=== PATIENT | female | born 1940 | race African-American/Black ===

== ENCOUNTER 2021-07-25 11:55 | Inpatient (IN) ==
[2021-07-25 14:08] LABS: Bilirubin,Urine Negative (Negative); Blood, Urine Moderate mg/dL (Negative); Glucose,Urine (UA) Negative (Negative); Ketones,Urine Negative (Negative); Nitrite,Urine Negative (Negative); Protein,Urine 100 MG/DL; RBC,Urine 11 /HPF (0-4); Squamous Epithelial Cell,Urine Occasional /HPF (0-10); Urine Appearance CLEAR (Clear); Urine Color Red (Yellow); Urine Specific Gravity 1.018 (1.001-1.035); Urine Urobilinogen < 2.0 EU/DL (0.2-1.0)
[2021-07-25] MEDS ORDERED: cefTRIAXone 1,000 MG in SODIUM CHLORIDE 0.9% 100 ML IV STA (14:29)
[2021-07-25] MEDS ORDERED: AZITHROMYCIN 250 MG TABLET PO STA (14:29)
[2021-07-25 14:31] LABS: Basophils % 0.7 % (0.0-0.8); Eosinophils # 0.1 10*3/uL (0.0-0.87); Eosinophils % 2.2 % (0.00-10.9); Hematocrit 27.2 VOL% (35.7-47.0); Hemoglobin 8.8 GM/DL (12.0-16.0); Immature Granulocytes % 2.2 %; Immature Granulocytes Absolute 0.09 #; Lymphocytes # 1.1 10*3/uL (1.4-4.0); Lymphocytes % 28.3 % (21.3-54.2); Mean Corpuscular HGB Conc 32.4 GM/DL (32-36); Mean Corpuscular Volume 100.7 FL (87-102); Monocytes % 17.4 % (1.7-12.7); NRBC # 0.04 10*3/uL; Neutrophils % 49.2 % (38.7-73.9); Red Cell Distribution Width 18.6 % (9.3-17.3)
[2021-07-25 14:33] LABS: Platelet Count 92 T/CUMM (130-400)
[2021-07-25 15:02] LABS: Alanine Aminotransferase 18 U/L (13-56); Albumin 2.9 G/DL (3.4-5.0); Alkaline Phosphatase 104 U/L (45-117); Aspartate Amino Transferase 47 U/L (0-37); Blood Urea Nitrogen 14 MG/DL (7-18); Calcium 8.3 MG/DL (8.5-10.1); Carbon Dioxide 21 MMOL/L (21-32); Estimated Glom Filtration Rate 97 ML/MIN; Glucose 71 MG/DL (74-106); Osmolality,Calculated 275.5 MOS/KG (273-304); Potassium 3.6 MMOL/L (3.5-5.1); Sodium 139 MMOL/L (136-145); Total Protein 5.3 G/DL (6.4-8.2)
[2021-07-25 15:05] LABS: Anisocytosis 2+; Atypical Lymphocytes Few; Band Neutrophils 7 % (0-10); Burr Cells 2+; Eosinophils 4 % (0-10); Lymphocytes 30 % (20-55); Macrocytosis 1+; Metamyelocytes 4 %; Myelocytes 1 %; Nucleated Red Blood Cells 1 (0-5); Platelet Estimate Decreased; Poikilocytosis 2+; Segmented Neutrophils 40 % (50-85); Total Cells Counted 100
[2021-07-25 15:06] LABS: Ovalocytes 1+
[2021-07-25] MEDS ORDERED: SODIUM CHLORIDE 0.9% 2,200 ML IV ONE (15:07)
[2021-07-25] MEDS: LEVOFLOXACIN INJ 500 MG/100 ML PREMIX IV SCH (16:20)
[2021-07-25] MEDS ORDERED: ONDANSETRON 4 MG/2 ML VIAL IV PRN (16:47)
[2021-07-25 17:50] LABS: Folate 7.93 NG/ML (5.38-24.0)
[2021-07-25 18:00] LABS: % Iron Saturation 27.4 % (18-50); Ferritin 3959.6 ng/mL (8-252)
[2021-07-25] MEDS: SODIUM CHLORIDE 0.9% 1,000 ML IV SCH (18:00)
[2021-07-25] MEDS: ACYCLOVIR 200 MG CAPSULE PO SCH (22:51)
[2021-07-25] MEDS ORDERED: MINERAL OIL ENEMA 133 ML BOTTLE RECTAL ONE (23:30)
[2021-07-26 05:21] LABS: Basophils % 0.9 % (0.0-0.8); Eosinophils # 0.1 10*3/uL (0.0-0.87); Eosinophils % 2.7 % (0.00-10.9); Hemoglobin 7.2 GM/DL (12.0-16.0); Immature Granulocytes % 1.5 %; Immature Granulocytes Absolute 0.05 #; Lymphocytes # 1.2 10*3/uL (1.4-4.0); Lymphocytes % 36.9 % (21.3-54.2); Mean Corpuscular HGB Conc 32.7 GM/DL (32-36); Mean Platelet Volume 11.5 FL (9.6-12.0); Monocytes % 12.2 % (1.7-12.7); NRBC # 0.04 10*3/uL; Neutrophils % 45.8 % (38.7-73.9); Platelet Count 77 T/CUMM (130-400); Red Cell Distribution Width 18.6 % (9.3-17.3); White Blood Count 3.3 T/CUMM (4-12)
[2021-07-26 05:33] LABS: Calcium 7.7 MG/DL (8.5-10.1); Osmolality,Calculated 279.3 MOS/KG (273-304); Potassium 3.4 MMOL/L (3.5-5.1)
[2021-07-26 05:43] LABS: Eosinophils 2 % (0-10); Hypochromasia 1+; Lymphocytes 25 % (20-55); Microcytosis 1+; Nucleated Red Blood Cells 1 (0-5); Ovalocytes Slight; Platelet Estimate Decreased; Segmented Neutrophils 60 % (50-85); Total Cells Counted 100
[2021-07-26 05:44] LABS: Albumin 2.4 G/DL (3.4-5.0); Calcium 7.6 MG/DL (8.5-10.1); Potassium 3.4 MMOL/L (3.5-5.1); Thyroid Stimulating Hormone 0.916 uIU/ml (0.358-3.74); Total Protein 4.5 G/DL (6.4-8.2)
[2021-07-26] MEDS: LEVOTHYROXINE 50 MCG TABLET PO SCH (06:08)
[2021-07-26] MEDS: SODIUM CHLORIDE 0.9% 1,000 ML IV SCH ×2 (06:24→20:41)
[2021-07-26] MEDS ORDERED: SODIUM CHLORIDE 0.9% 1,000 ML IV PRN (08:48)
[2021-07-26] MEDS ORDERED: MAGNESIUM SULF RIDER 2 GM/50 ML PREMIX IV ONE (08:49)
[2021-07-26] MEDS: CHOLECALCIFEROL 400 UNIT TABLET PO SCH (10:29)
[2021-07-26] MEDS: POTASSIUM CHLORIDE 10 MEQ TABLET PO SCH (10:31)
[2021-07-26] MEDS: allopurinoL 300 MG TABLET PO SCH (10:32)
[2021-07-26] MEDS: ACYCLOVIR 200 MG CAPSULE PO SCH ×2 (10:32→20:36)
[2021-07-26] MEDS: PANTOPRAZOLE 40 MG TABLET PO SCH (10:33)
[2021-07-26] MEDS ORDERED: MAGNESIUM HYDROXIDE SUSP 30 ML UDCUP PO PRN (11:40)
[2021-07-26] MEDS: DOCUSATE/SENNA 50-8.6 MG TABLET PO SCH ×2 (14:07→20:36)
[2021-07-26] MEDS: DIFLUPREDNATE 0.05% OPH EMUL 5 ML BOTTLE BOTH EYES SCH (14:14)
[2021-07-26] MEDS: LEVOFLOXACIN INJ 500 MG/100 ML PREMIX IV SCH (15:11)
[2021-07-27] MEDS: ACETAMINOPHEN 325 MG TABLET PO PRN ×2 (01:15→13:26)
[2021-07-27 02:23] LABS: Hemoglobin 7.9 GM/DL (12.0-16.0)
[2021-07-27 05:36] LABS: Basophils % 0.9 % (0.0-0.8); Eosinophils # 0.1 10*3/uL (0.0-0.87); Eosinophils % 1.8 % (0.00-10.9); Hematocrit 23.1 VOL% (35.7-47.0); Hemoglobin 7.7 GM/DL (12.0-16.0); Immature Granulocytes % 3.2 %; Immature Granulocytes Absolute 0.11 #; Lymphocytes # 0.8 10*3/uL (1.4-4.0); Lymphocytes % 22.2 % (21.3-54.2); Mean Corpuscular HGB Conc 33.3 GM/DL (32-36); Mean Corpuscular Volume 98.7 FL (87-102); Mean Platelet Volume 12.2 FL (9.6-12.0); NRBC # 0.06 10*3/uL; Neutrophils % 59.9 % (38.7-73.9); Platelet Count 70 T/CUMM (130-400); Red Blood Count 2.34 MC/CUMM (3.8-5.5); White Blood Count 3.4 T/CUMM (4-12)
[2021-07-27 05:47] LABS: Calcium 7.6 MG/DL (8.5-10.1); Osmolality,Calculated 281.3 MOS/KG (273-304); Potassium 3.7 MMOL/L (3.5-5.1)
[2021-07-27] MEDS: LEVOTHYROXINE 50 MCG TABLET PO SCH (06:15)
[2021-07-27 06:21] LABS: Anisocytosis 3+; Band Neutrophils 24 % (0-10); Eosinophils 1 % (0-10); Lymphocytes 19 % (20-55); Nucleated Red Blood Cells 3 (0-5); Platelet Estimate Decreased; Poikilocytosis 1+; Segmented Neutrophils 44 % (50-85); Total Cells Counted 100
[2021-07-27 06:22] LABS: Burr Cells 1+; Ovalocytes Few; Spherocytes Few; Tear Drop Cells Few
[2021-07-27] MEDS: ACYCLOVIR 200 MG CAPSULE PO SCH ×2 (08:56→21:03)
[2021-07-27] MEDS: allopurinoL 300 MG TABLET PO SCH (08:57)
[2021-07-27] MEDS: DOCUSATE/SENNA 50-8.6 MG TABLET PO SCH ×2 (08:57→21:46)
[2021-07-27] MEDS: PANTOPRAZOLE 40 MG TABLET PO SCH (08:58)
[2021-07-27] MEDS: CHOLECALCIFEROL 400 UNIT TABLET PO SCH (08:58)
[2021-07-27] MEDS: POTASSIUM CHLORIDE 10 MEQ TABLET PO SCH (08:58)
[2021-07-27 09:46] LABS: Hematocrit 23.3 VOL% (35.7-47.0); Hemoglobin 7.9 GM/DL (12.0-16.0)
[2021-07-27] MEDS: SODIUM CHLORIDE 0.9% 1,000 ML IV SCH (11:23)
[2021-07-27] MEDS: POLYETHYLENE GLYCOL POWDER 17 GM PACK PO SCH ×2 (11:26→21:46)
[2021-07-27] MEDS ORDERED: SODIUM PHOSPHATE ENEMA 133 ML BOTTLE RECTAL PRN (11:43)
[2021-07-27] MEDS ORDERED: BENZONATATE 100 MG CAPSULE PO PRN (12:06)
[2021-07-27] MEDS: FLUTICASONE 50 MCG NASAL SPRAY 16 GM BOTTLE BOTH NARES SCH ×2 (13:27→21:46)
[2021-07-27] MEDS: DIFLUPREDNATE 0.05% OPH EMUL 5 ML BOTTLE BOTH EYES SCH (13:27)
[2021-07-27 18:30] LABS: Hematocrit 26.6 VOL% (35.7-47.0); Hemoglobin 8.8 GM/DL (12.0-16.0)
[2021-07-28] MEDS: SODIUM CHLORIDE 0.9% 1,000 ML IV SCH ×3 (03:15→22:32)
[2021-07-28 06:19] LABS: Basophils # 0.1 10*3/uL (0.0-0.2); Basophils % 1.6 % (0.0-0.8); Eosinophils # 0.2 10*3/uL (0.0-0.87); Eosinophils % 4.8 % (0.00-10.9); Hematocrit 23.1 VOL% (35.7-47.0); Hemoglobin 7.6 GM/DL (12.0-16.0); Immature Granulocytes % 1.3 %; Immature Granulocytes Absolute 0.04 #; Lymphocytes # 1.3 10*3/uL (1.4-4.0); Lymphocytes % 40.6 % (21.3-54.2); Mean Corpuscular HGB Conc 32.9 GM/DL (32-36); Mean Corpuscular Volume 95.9 FL (87-102); Mean Platelet Volume 12.6 FL (9.6-12.0); Monocytes % 9.9 % (1.7-12.7); NRBC # 0.05 10*3/uL; Neutrophils % 41.8 % (38.7-73.9); Platelet Count 72 T/CUMM (130-400); Red Blood Count 2.41 MC/CUMM (3.8-5.5); Red Cell Distribution Width 21.8 % (9.3-17.3); White Blood Count 3.1 T/CUMM (4-12)
[2021-07-28] MEDS: LEVOTHYROXINE 50 MCG TABLET PO SCH (06:26)
[2021-07-28 06:45] LABS: Band Neutrophils 1 % (0-10); Calcium 7.6 MG/DL (8.5-10.1); Eosinophils 5 % (0-10); Lymphocytes 37 % (20-55); Potassium 3.5 MMOL/L (3.5-5.1); Segmented Neutrophils 50 % (50-85); Total Cells Counted 100
[2021-07-28 06:46] LABS: Burr Cells Slight; Hypochromasia 1+; Microcytosis 1+; Ovalocytes Slight; Platelet Estimate Decreased
[2021-07-28] MEDS: DOCUSATE/SENNA 50-8.6 MG TABLET PO SCH ×2 (09:34→22:33)
[2021-07-28] MEDS: POTASSIUM CHLORIDE 10 MEQ TABLET PO SCH (09:35)
[2021-07-28] MEDS: PANTOPRAZOLE 40 MG TABLET PO SCH (09:35)
[2021-07-28] MEDS: allopurinoL 300 MG TABLET PO SCH (09:35)
[2021-07-28] MEDS: ACYCLOVIR 200 MG CAPSULE PO SCH ×2 (09:36→21:01)
[2021-07-28] MEDS: FLUTICASONE 50 MCG NASAL SPRAY 16 GM BOTTLE BOTH NARES SCH ×2 (09:37→22:33)
[2021-07-28] MEDS: CHOLECALCIFEROL 400 UNIT TABLET PO SCH (09:37)
[2021-07-28] MEDS: POLYETHYLENE GLYCOL POWDER 17 GM PACK PO SCH (09:38)
[2021-07-28] MEDS ORDERED: diphenhydrAMINE CAP 25 MG CAPSULE PO PRN (11:28)
[2021-07-28] MEDS ORDERED: ACETAMINOPHEN 500 MG TABLET PO ONE (11:29)
[2021-07-28] MEDS ORDERED: ALUMINUM/MAGNES/SIMETH MAX STR 30 ML UDCUP PO PRN (11:30)
[2021-07-28] MEDS: DIFLUPREDNATE 0.05% OPH EMUL 5 ML BOTTLE BOTH EYES SCH (15:26)
[2021-07-28 20:11] LABS: Hematocrit 28.7 VOL% (35.7-47.0)
[2021-07-28 20:13] LABS: Hemoglobin 9.4 GM/DL (12.0-16.0)
[2021-07-29] MEDS: ACETAMINOPHEN 325 MG TABLET PO PRN (02:40)
[2021-07-29 04:31] LABS: Basophils % 1.3 % (0.0-0.8); Eosinophils # 0.1 10*3/uL (0.0-0.87); Eosinophils % 3.5 % (0.00-10.9); Hemoglobin 8.6 GM/DL (12.0-16.0); Immature Granulocytes % 1.3 %; Immature Granulocytes Absolute 0.04 #; Lymphocytes # 0.9 10*3/uL (1.4-4.0); Lymphocytes % 28.8 % (21.3-54.2); Mean Corpuscular HGB Conc 33.1 GM/DL (32-36); Mean Corpuscular Volume 94.2 FL (87-102); Mean Platelet Volume 11.9 FL (9.6-12.0); Monocytes % 10.5 % (1.7-12.7); NRBC # 0.07 10*3/uL; Neutrophils % 54.6 % (38.7-73.9); Red Blood Count 2.76 MC/CUMM (3.8-5.5); Red Cell Distribution Width 22.1 % (9.3-17.3); White Blood Count 3.1 T/CUMM (4-12)
[2021-07-29] MEDS: SODIUM CHLORIDE 0.9% 1,000 ML IV SCH ×2 (04:40→09:33)
[2021-07-29 04:52] LABS: Albumin 2.3 G/DL (3.4-5.0); Bilirubin,Total 2.8 MG/DL (0.20-1.00); Calcium 7.3 MG/DL (8.5-10.1); Osmolality,Calculated 283.1 MOS/KG (273-304); Potassium 3.7 MMOL/L (3.5-5.1); Total Protein 4.4 G/DL (6.4-8.2)
[2021-07-29 04:53] LABS: Platelet Count 80 T/CUMM (130-400)
[2021-07-29 05:05] LABS: Burr Cells Few; Elliptocytes Few; Hypochromasia 1+; Microcytosis 1+; Platelet Estimate Decreased
[2021-07-29] MEDS: LEVOTHYROXINE 50 MCG TABLET PO SCH (06:04)
[2021-07-29] MEDS ORDERED: DOCUSATE SODIUM 100 MG CAPSULE PO PRN (07:57)
[2021-07-29] MEDS: POTASSIUM CHLORIDE 10 MEQ TABLET PO SCH (09:28)
[2021-07-29] MEDS: CHOLECALCIFEROL 400 UNIT TABLET PO SCH (09:28)
[2021-07-29] MEDS: POLYETHYLENE GLYCOL POWDER 17 GM PACK PO SCH (09:28)
[2021-07-29] MEDS: FERROUS SULFATE 325 MG TABLET PO SCH ×2 (09:28→22:25)
[2021-07-29] MEDS: PANTOPRAZOLE 40 MG TABLET PO SCH (09:29)
[2021-07-29] MEDS: ACYCLOVIR 200 MG CAPSULE PO SCH ×2 (09:29→22:26)
[2021-07-29] MEDS: allopurinoL 300 MG TABLET PO SCH (09:29)
[2021-07-29] MEDS: DIFLUPREDNATE 0.05% OPH EMUL 5 ML BOTTLE BOTH EYES SCH (09:29)
[2021-07-29] MEDS: DOCUSATE/SENNA 50-8.6 MG TABLET PO SCH ×2 (09:29→22:26)
[2021-07-29] MEDS: FLUTICASONE 50 MCG NASAL SPRAY 16 GM BOTTLE BOTH NARES SCH ×2 (09:30→22:46)
[2021-07-29] MEDS: MEROPENEM 500 MG in SODIUM CHLORIDE 0.9% 100 ML IV SCH ×2 (13:09→18:33)
[2021-07-30] MEDS: SODIUM CHLORIDE 0.9% 1,000 ML IV SCH ×4 (00:08→21:45)
[2021-07-30] MEDS: MEROPENEM 500 MG in SODIUM CHLORIDE 0.9% 100 ML IV SCH ×4 (00:09→18:16)
[2021-07-30] MEDS: LEVOTHYROXINE 50 MCG TABLET PO SCH (06:07)
[2021-07-30 06:11] LABS: Albumin 2.2 G/DL (3.4-5.0); Bilirubin,Total 2.4 MG/DL (0.20-1.00); Calcium 7.4 MG/DL (8.5-10.1); Osmolality,Calculated 285.7 MOS/KG (273-304); Potassium 3.7 MMOL/L (3.5-5.1); Total Protein 4.4 G/DL (6.4-8.2)
[2021-07-30 06:14] LABS: Basophils # 0.1 10*3/uL (0.0-0.2); Basophils % 2.2 % (0.0-0.8); Eosinophils # 0.1 10*3/uL (0.0-0.87); Eosinophils % 4.4 % (0.00-10.9); Hematocrit 24.4 VOL% (35.7-47.0); Immature Granulocytes % 0.9 %; Immature Granulocytes Absolute 0.03 #; Lymphocytes # 1.3 10*3/uL (1.4-4.0); Mean Corpuscular HGB Conc 32.8 GM/DL (32-36); Mean Corpuscular Volume 95.7 FL (87-102); Mean Platelet Volume 11.9 FL (9.6-12.0); Monocytes % 13.2 % (1.7-12.7); NRBC # 0.02 10*3/uL; Neutrophils % 38.3 % (38.7-73.9); Platelet Count 76 T/CUMM (130-400); Red Blood Count 2.55 MC/CUMM (3.8-5.5); Red Cell Distribution Width 22.8 % (9.3-17.3); White Blood Count 3.2 T/CUMM (4-12)
[2021-07-30 06:22] LABS: Eosinophils 2 % (0-10); Lymphocytes 38 % (20-55); Platelet Estimate Decreased; Segmented Neutrophils 54 % (50-85); Total Cells Counted 100
[2021-07-30 06:23] LABS: Atypical Lymphocytes Few; Burr Cells Slight; Hypochromasia 1+; Microcytosis 1+; Ovalocytes Slight
[2021-07-30 06:58] LABS: Hepatitis B Core IgM Quant 0.15 Index; Hepatitis B Surface Ag Quant < 0.10 Index; Hepatitis B Surface Ag Result Non-Reactive (NonReactive); Hepatitis C Virus Ab Quant 0.03 Index; Hepatitis C Virus Ab Result Non-Reactive (NonReactive)
[2021-07-30] MEDS: PANTOPRAZOLE 40 MG TABLET PO SCH (10:31)
[2021-07-30] MEDS: POLYETHYLENE GLYCOL POWDER 17 GM PACK PO SCH (10:31)
[2021-07-30] MEDS: FLUTICASONE 50 MCG NASAL SPRAY 16 GM BOTTLE BOTH NARES SCH ×2 (10:31→20:12)
[2021-07-30] MEDS: FERROUS SULFATE 325 MG TABLET PO SCH ×2 (10:31→20:13)
[2021-07-30] MEDS: DOCUSATE/SENNA 50-8.6 MG TABLET PO SCH ×2 (10:31→20:22)
[2021-07-30] MEDS: POTASSIUM CHLORIDE 10 MEQ TABLET PO SCH (10:31)
[2021-07-30] MEDS: ACYCLOVIR 200 MG CAPSULE PO SCH ×2 (10:32→20:13)
[2021-07-30] MEDS: CHOLECALCIFEROL 400 UNIT TABLET PO SCH (10:32)
[2021-07-30] MEDS: allopurinoL 300 MG TABLET PO SCH (10:32)
[2021-07-30 10:57] LABS: Hematocrit 24.7 VOL% (35.7-47.0); Hemoglobin 8.1 GM/DL (12.0-16.0)
[2021-07-30] MEDS: DIFLUPREDNATE 0.05% OPH EMUL 5 ML BOTTLE BOTH EYES SCH (11:03)
[2021-07-30] MEDS: cefTRIAXone 1,000 MG in SODIUM CHLORIDE 0.9% 100 ML IV ONE ×2 (12:25→16:00)
[2021-07-30] MEDS ORDERED: ONDANSETRON 4 MG/2 ML VIAL ONE (14:23)
[2021-07-30] MEDS ORDERED: LIDOCAINE 2% 5 ML VIAL ONE (14:23)
[2021-07-30] MEDS ORDERED: propofoL 200 MG/20 ML VIAL IV ONE (14:23)
[2021-07-30] MEDS ORDERED: SUCCINYLCHOLINE 200 MG/10 ML VIAL ONE (14:23)
[2021-07-30] MEDS ORDERED: fentaNYL 100 MCG/2 ML VIAL ONE (14:23)
[2021-07-30] MEDS ORDERED: ROCURONIUM 50 MG/5 ML VIAL IV ONE (14:24)
[2021-07-30] MEDS ORDERED: ALBUMIN 5% 25.0 GM/500 ML VIAL IV ONE (14:47)
[2021-07-30] MEDS ORDERED: NEOMYCIN/POLYMYXIN IRRIG SOLN 1 ML AMP BLADDERIRR ONE (15:02)
[2021-07-30] MEDS ORDERED: DEXAMETHASONE 4 MG/1 ML VIAL ONE (15:25)
[2021-07-30] MEDS ORDERED: ePHEDrine 50 MG/ML VIAL ONE (15:29)
[2021-07-30] MEDS ORDERED: NEOSTIGMINE 10 MG/10 ML VIAL ONE (15:50)
[2021-07-30] MEDS ORDERED: DEXAMETHASONE 4 MG TABLET PO SCH (16:56)
[2021-07-30 16:58] LABS: Hematocrit 26.4 VOL% (35.7-47.0)
[2021-07-30] MEDS: ACETAMINOPHEN 325 MG TABLET PO PRN (20:16)
[2021-07-30 22:29] LABS: Hematocrit 25.8 VOL% (35.7-47.0); Hemoglobin 8.3 GM/DL (12.0-16.0)
[2021-07-31] MEDS: MEROPENEM 500 MG in SODIUM CHLORIDE 0.9% 100 ML IV SCH ×2 (00:05→05:36)
[2021-07-31] MEDS: SODIUM CHLORIDE 0.9% 1,000 ML IV SCH ×2 (02:14→06:14)
[2021-07-31] MEDS: LEVOTHYROXINE 50 MCG TABLET PO SCH (05:38)
[2021-07-31 08:15] VITALS: BP 117/42
[2021-07-31] MEDS: FLUTICASONE 50 MCG NASAL SPRAY 16 GM BOTTLE BOTH NARES SCH (09:21)
[2021-07-31] MEDS: allopurinoL 300 MG TABLET PO SCH (09:21)
[2021-07-31] MEDS: ACYCLOVIR 200 MG CAPSULE PO SCH (09:22)
[2021-07-31] MEDS: DIFLUPREDNATE 0.05% OPH EMUL 5 ML BOTTLE BOTH EYES SCH (09:23)
[2021-07-31] MEDS: FERROUS SULFATE 325 MG TABLET PO SCH (09:31)
[2021-07-31] MEDS: DOCUSATE/SENNA 50-8.6 MG TABLET PO SCH (09:32)
[2021-07-31] MEDS: PANTOPRAZOLE 40 MG TABLET PO SCH (09:32)
[2021-07-31] MEDS: POTASSIUM CHLORIDE 10 MEQ TABLET PO SCH (09:32)
[2021-07-31] MEDS: CHOLECALCIFEROL 400 UNIT TABLET PO SCH (09:32)
[2021-07-31] MEDS: POLYETHYLENE GLYCOL POWDER 17 GM PACK PO SCH (09:41)
== END 2021-07-31 11:50 | disposition home or self-care (01) | DRG 668 ==
LOC: N.ED 11:55 → SUATTDRO 16:47 → N.EDINP 16:47 → N.TELEN 20:33
PROVIDERS: ADMIT Internal Medicine; ATTEND Internal Medicine